=== PATIENT | male | born 1970 | race Hispanic/Latino ===

== ENCOUNTER 2020-01-25 10:35 | Emergency (ER) | payer BC ==
[2020-01-25] MEDS ORDERED: Ketorolac Tromethamine 30 MG/ML VIAL ONE (11:12)
[2020-01-25] MEDS ORDERED: Fentanyl 100 MCG/2 ML VIAL ONE (11:12)
[2020-01-25] MEDS ORDERED: Ondansetron PF 4 MG/2 ML Vial ONE (11:12)
[2020-01-25 11:27] LABS: #Basophils 0.1 thou/uL (0.0-0.2); #Eosinphils 0.1 thou/uL (0.0-0.7); #Lymphocytes 2.1 thou/uL (1.20-3.40); #Monocytes 0.7 thou/uL (0.11-0.59); %Basophils 0.7 % (0.0-1.0); %Lymphocytes 23.6 % (21.0-51.0); %Monocytes 7.7 % (0.0-10.0); Hemoglobin 17.2 g/dL (14.0-18.0); Mean Corpuscular HGB CONC 34.7 g/dL (32.0-36.0); Mean Corpuscular Hemoglobin 31.8 pg (27.0-31.0); Mean Corpuscular Volume 91.6 fL (78.0-98.0); Mean Platelet Volume 7.4 fL (7.4-10.4); Platelet Count 281 thou/uL (130-400); RBC Distribution Width 12.3 % (11.5-14.5); Red Blood Cell (RBC) Count 5.42 mill/uL (4.70-6.10); White Blood Cell (WBC) Count 8.9 thou/uL (4.8-10.8)
--- NOTE | 2020-01-25 11:45 | ULT ---
Exam: Scrotal ultrasound including color and spectral Doppler imaging: HISTORY: Left testicular and groin pain FINDINGS: Right testes measures 4.2 x 2.7 x 3 cm. Left testes measures 4.3 x 2.4 x 3.1 cm No intratesticular mass. No significant hydrocele. Vascular flow is documented to both testes. No evidence for testicular torsion. IMPRESSION: Unremarkable scrotal and testicular ultrasound. No evidence for torsion or intratesticular solid mass or other acute process.
[2020-01-25 11:52] LABS: ALT (SGPT) 37 U/L (8-55); AST (SGOT) 22 U/L (5-34); Albumin 4.5 g/dL (3.5-5.0); Alkaline Phosphatase 88 U/L (40-110); Anion Gap 12 mmol/L (10-20); BUN (Urea Nitrogen) 12 mg/dL (8.9-20.6); Bilirubin, Total 0.8 mg/dL (0.2-1.2); CK (CPK) 118 U/L (30-200); Calc. Creatinine Clearance 0 mL/min (70-130); Calcium 10.1 mg/dL (7.8-10.44); Carbon Dioxide 28 mmol/L (22-29); Chloride 102 mmol/L (98-107); Estimated GFR-MDRD Greater than 90; Globulin 3.5 g/dL (2.4-3.5); Glucose 107 mg/dL (70-105); Lipase 36 U/L (8-78); Potassium 3.8 mmol/L (3.5-5.1); Sodium 138 mmol/L (136-145)
--- NOTE | 2020-01-25 12:21 | CT ---
EXAM: CT abdomen and pelvis without contrast PROVIDED CLINICAL HISTORY: Left testicular and groin pain COMPARISON: None FINDINGS: The visualized lung bases are free of significant opacity. Diffuse fatty infiltration of the liver. The solid abdominal organs are suboptimally evaluated in the absence of IV contrast material but demonstrate an otherwise unremarkable unenhanced CT appearance. There is no evidence for urinary tract calculi or hydronephrosis. No bowel dilatation, inflammatory fat stranding, free fluid or free air apparent. No evidence for lei endicitis. The osseous structures demonstrate no concerning lytic or blastic lesions. Normal vascular calcificat ion including coronary calcium is seen. IMPRESSION: No evidence for urinary tract calculi or hydronephrosis.
[2020-01-25 12:23] LABS: Bilirubin Negative (Negative); Blood, Urine Negative (Negative); Clarity Clear (Clear); Glucose, Urine (Dipstick) Normal (Negative); Leukocyte Negative Leu/uL (Negative); Nitrite Negative (Negative); Protein, Urine (Dipstick) Negative (Neg-Trace); Urobilinogen Normal mg/dL (Less than 2)
== END 2020-01-25 13:40 | disposition home or self-care (01) ==
LOC: ERS 10:35
DX: N50.812 Left testicular pain (principal); R10.9 Unspecified abdominal pain
CPT/HCPCS: 74176; 76870; 80053; 81003; 82550; 83690; 85025; 93976; 96374; 96375; J1885; J2405; J3010